=== PATIENT | female | born 1975 | race Caucasian/White ===

== ENCOUNTER 2017-07-30 14:18 | Emergency (ER) | payer OTHER, SELFPAY ==
[2017-07-30] MEDS ORDERED: Ondansetron HCl/PF 4 MG/2 ML Vial ONE (14:43)
[2017-07-30 14:45] LABS: Bilirubin Negative (Negative); Blood, Urine Negative (Negative); Clarity Clear (Clear); Glucose, Urine (Dipstick) Negative (Negative); Leukocyte Negative (Negative); Nitrite Negative (Negative); Protein, Urine (Dipstick) Negative (Neg-Trace); Urobilinogen 0.2 mg/dL (0.2-1.0); pH, Urine 5.5 (5.0-9.0)
[2017-07-30 14:48] LABS: #Basophils 0.1 thou/uL (0.0-0.2); #Eosinphils 0.3 thou/uL (0.0-0.7); #Lymphocytes 2.3 thou/uL (1.20-3.40); #Monocytes 0.5 thou/uL (0.11-0.59); #Neutrophils 3.2 thou/uL (1.40-6.50); %Basophils 1.6 % (0.0-1.0); %Eosinophils 4.1 % (0.0-10.0); %Lymphocytes 36.6 % (21.0-51.0); %Monocytes 7.1 % (0.0-10.0); %Neutrophils 50.6 % (42.0-75.0); Hemoglobin 9.7 g/dL (12.0-16.0); Mean Corpuscular HGB CONC 31.8 g/dL (32.0-36.0); Mean Corpuscular Volume 78.8 fl (81.0-99.0); Mean Platelet Volume 9.7 fL (7.4-10.4); Platelet Count 218 thou/uL (130-400); RBC Distribution Width 14.4 % (11.5-14.5); Red Blood Cell (RBC) Count 3.88 mill/uL (4.20-5.40); Specific Gravity, Urine 1.008 (1.002-1.036); White Blood Cell (WBC) Count 6.3 thou/uL (4.8-10.8)
[2017-07-30] MEDS ORDERED: Morphine 10 MG/ML VIAL ONE (15:00)
[2017-07-30 15:02] LABS: ALT (SGPT) 9 U/L (8-55); AST (SGOT) 14 U/L (5-34); Albumin 4.2 g/dL (3.5-5.0); Alkaline Phosphatase 54 U/L (40-150); Anion Gap 14 mmol/L (10-20); BUN (Urea Nitrogen) Less than 4 mg/dL (7.0-18.7); Bilirubin, Total 0.2 mg/dL (0.2-1.2); Calc. Creatinine Clearance 0 mL/min (70-130); Calcium 8.6 mg/dL (7.8-10.44); Carbon Dioxide 24 mmol/L (22-29); Chloride 101 mmol/L (98-107); Estimated GFR-MDRD Greater than 90; Globulin 2.4 g/dL (2.4-3.5); Glucose 96 mg/dL (70-105); Potassium 3.8 mmol/L (3.5-5.1); Protein, Total 6.6 g/dL (6.0-8.3); Sodium 135 mmol/L (136-145)
[2017-07-30 15:30] LABS: Lipase Less than 4 U/L (8-78)
--- NOTE | 2017-07-30 16:13 | ULT ---
PELVIC ULTRASOUND: 07/30/17 Transabdominal ultrasound of pelvis performed. HISTORY: Pelvic pain. Patient is post hysterectomy and right oophorectomy. Bladder is mildly distended and appears unremarkable. The left ovary appears enlarged and there are p rominent follicular cysts within the left ovary. The larger ones measuring up to 2.0 cm. Left ovary m easurements recorded at 6.3 x 4.0 x 3.0 cm. Color doppler with spectral analysis does demonstrate blood flow to this left ovary. IMPRESSION: Left ovary is enlarged with multiple cysts, the largest measuring up to 2 cm. POS: [facility]
== END 2017-07-30 16:25 | disposition home or self-care (01) ==
LOC: SCSER 14:18
DX: N83.202 Unspecified ovarian cyst, left side (principal); E03.9 Hypothyroidism, unspecified; F17.210 Nicotine dependence, cigarettes, uncomplicated; Z79.899 Other long term (current) drug therapy
CPT/HCPCS: 76856; 80053; 81003; 83690; 85025; 93976; 96374; 96375; 96376; 99406; J2270; J2405

== ENCOUNTER 2017-07-31 17:26 | Emergency (ER) | payer SELFPAY ==
[2017-07-31] MEDS ORDERED: Morphine 10 MG/ML VIAL ONE ×2 (17:44→18:14)
[2017-07-31] MEDS ORDERED: Ondansetron HCl/PF 4 MG/2 ML Vial ONE (17:44)
[2017-07-31 18:14] LABS: ALT (SGPT) 8 U/L (8-55); AST (SGOT) 14 U/L (5-34); Alkaline Phosphatase 56 U/L (40-150); Anion Gap 14 mmol/L (10-20); BUN (Urea Nitrogen) 4 mg/dL (7.0-18.7); Bilirubin, Total 0.2 mg/dL (0.2-1.2); CK (CPK) 96 U/L (29-168); Calc. Creatinine Clearance 0 mL/min (70-130); Calcium 8.5 mg/dL (7.8-10.44); Carbon Dioxide 24 mmol/L (22-29); Chloride 104 mmol/L (98-107); Estimated GFR-MDRD 85; Globulin 2.2 g/dL (2.4-3.5); Glucose 81 mg/dL (70-105); Potassium 4.1 mmol/L (3.5-5.1); Protein, Total 6.2 g/dL (6.0-8.3); Sodium 138 mmol/L (136-145)
[2017-07-31] MEDS ORDERED: Ketorolac Tromethamine 30 MG/ML VIAL ONE (18:14)
[2017-07-31 18:45] LABS: Bilirubin Negative (Negative); Blood, Urine Negative (Negative); Clarity Clear (Clear); Glucose, Urine (Dipstick) Negative (Negative); Leukocyte Negative (Negative); Nitrite Negative (Negative); Protein, Urine (Dipstick) Negative (Neg-Trace); Specific Gravity, Urine 1.015 (1.005-1.030); Urobilinogen 0.2 mg/dL (0.2-1.0)
[2017-07-31] MEDS ORDERED: Fentanyl 100 MCG/2 ML VIAL ONE (19:30)
--- NOTE | 2017-07-31 20:30 | ULT ---
ULTRASOUND PELVIC TRANSVAGINAL WITH DOPPLER 07/31/17 HISTORY: Pain. COMPARISON: Ultrasound yesterday. Patient has history of hysterectomy and right oophorectomy. FINDINGS: Polycystic left ovary is again seen. Adequate vascular flow. Urinary bladder is unremarkable. IMPRESSION: Unchanged exam. 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 POS: [facility]
== END 2017-07-31 20:27 | disposition home or self-care (01) ==
LOC: SCSER 17:26
DX: R10.2 Pelvic and perineal pain (principal); R10.32 Left lower quadrant pain; E03.9 Hypothyroidism, unspecified; F41.9 Anxiety disorder, unspecified; F17.210 Nicotine dependence, cigarettes, uncomplicated; Z79.899 Other long term (current) drug therapy
CPT/HCPCS: 76856; 80053; 81003; 82550; 96374; 96375; 99406; J1885; J2270; J2405; J3010

== ENCOUNTER 2018-05-30 21:07 | Emergency (ER) | payer OTHER, SELFPAY ==
[~2018-05-30 21:07] MED LIST: Iopamidol 370 76% 100 ML VIAL ONE
[2018-05-30] MEDS ORDERED: Ondansetron PF 4 MG/2 ML Vial ONE (21:35)
[2018-05-30] MEDS ORDERED: Morphine 4 MG/ML VIAL ONE ×3 (21:35→23:03)
[2018-05-30 21:40] LABS: #Basophils 0.1 thou/uL (0.0-0.2); #Eosinphils 0.1 thou/uL (0.0-0.7); #Lymphocytes 1.3 thou/uL (1.20-3.40); #Monocytes 0.6 thou/uL (0.11-0.59); #Neutrophils 7.2 thou/uL (1.40-6.50); %Basophils 1.2 % (0.0-1.0); %Eosinophils 1.5 % (0.0-10.0); %Lymphocytes 13.5 % (21.0-51.0); %Monocytes 6.5 % (0.0-10.0); %Neutrophils 77.3 % (42.0-75.0); Hemoglobin 12.2 g/dL (12.0-16.0); Mean Corpuscular HGB CONC 33.2 g/dL (32.0-36.0); Mean Corpuscular Volume 87.5 fL (78.0-98.0); Mean Platelet Volume 6.7 fL (7.4-10.4); Platelet Count 244 thou/uL (130-400); Red Blood Cell (RBC) Count 4.21 mill/uL (4.20-5.40); White Blood Cell (WBC) Count 9.4 thou/uL (4.8-10.8)
[2018-05-30 21:57] LABS: Bilirubin Negative (Negative); Blood, Urine Negative (Negative); Clarity Clear (Clear); Glucose, Urine (Dipstick) Negative (Negative); Leukocyte Negative (Negative); Nitrite Negative (Negative); Protein, Urine (Dipstick) Negative (Neg-Trace); Specific Gravity, Urine 1.026 (1.002-1.036); Urobilinogen 0.2 mg/dL (0.2-1.0); pH, Urine 5.5 (5.0-9.0)
[2018-05-30 22:01] LABS: ALT (SGPT) 10 U/L (8-55); AST (SGOT) 16 U/L (5-34); Albumin 4.2 g/dL (3.5-5.0); Alkaline Phosphatase 62 U/L (40-150); Anion Gap 18 mmol/L (10-20); BUN (Urea Nitrogen) 9 mg/dL (7.0-18.7); Bilirubin, Total 0.2 mg/dL (0.2-1.2); Calc. Creatinine Clearance 0 mL/min (70-130); Calcium 8.7 mg/dL (7.8-10.44); Carbon Dioxide 22 mmol/L (22-29); Chloride 97 mmol/L (98-107); Estimated GFR-MDRD 79; Globulin 2.5 g/dL (2.4-3.5); Glucose 104 mg/dL (70-105); Lipase 8 U/L (8-78); Potassium 4.3 mmol/L (3.5-5.1); Protein, Total 6.7 g/dL (6.0-8.3); Sodium 133 mmol/L (136-145)
--- NOTE | 2018-05-30 22:27 | ULT ---
PELVIC ULTRASOUND: 05/30/18 INDICATION: Left lower quadrant pain. FINDINGS: The uterus and adnexa are not visualized. There is prominent, persistent bowel gas obscuring contents of the pelvis from view. Urinary bladder is mildly distended. IMPRESSION: Nonvisualization of the uterus and adnexa due to persistent prominent bowel content of the pelvis. POS: [facility]
--- NOTE | 2018-05-30 23:01 | CT ---
ABDOMEN AND PELVIC CT NONCONTRAST RENAL CALCULUS PROTOCOL 05/30/18 COMPARISON: 08/16/16 INDICATION: Left lower quadrant pain, new onset. FINDINGS: There is patchy left basilar opacity at the left lower lobe partially visualized. No evidence of urol ithiasis. There is limited evaluation of the solid abdominal organs, bowel, lymph nodes, vasculature on the basis of noncontrast technique. Moderate retained fecal material throughout the colon is prese nt. No free air is visualized. No acute osseous pathology. IMPRESSION: No evidence of urolithiasis or obstructive uropathy. Incidental note of patchy opacity of the left lower lung which may be related to an atypical infectio us/inflammatory process. Correlate clinically. POS: [facility]
[2018-05-30] MEDS ORDERED: Ketorolac Tromethamine 30 MG/ML VIAL ONE (23:03)
--- NOTE | 2018-05-30 23:49 | CT ---
CTA CHEST WITH CONTRAST WITH 3D VOLUME RENDERIN05/30/18 CLINICAL HISTORY: Pain. FINDINGS: No significant filling defect of the pulmonary arteries. Thoracic aorta is nonaneurysmal. There is a reticulonodular region of opacity with interspersed ground glass alveolar opacity throughout the left lower lobe. No effusion or pneumothorax. 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 Correlate clinic ally. IMPRESSION: 1. No evidence of a large, central pulmonary embolus. 2. Left lower lobe pneumonia. Given the multifocal nodularity within the region of opacification , recommend radiographic followup to resolution. POS: [facility]
== END 2018-05-31 00:27 | disposition home or self-care (01) ==
LOC: SCSER 21:07
DX: K59.00 Constipation, unspecified (principal); J18.1 Lobar pneumonia, unspecified organism; E03.9 Hypothyroidism, unspecified; F41.9 Anxiety disorder, unspecified; Z87.891 Personal history of nicotine dependence; Z79.899 Other long term (current) drug therapy
CPT/HCPCS: 71275; 74176; 76856; 80053; 81003; 83690; 85025; 93976; 96361; 96374; 96375; 96376; J1885; J2270; J2405

== ENCOUNTER 2018-06-02 15:31 | Emergency (ER) | payer OTHER ==
[2018-06-02] MEDS ORDERED: Mag-Al Plus 1200 MG/1200 MG/120 MG/30 ML UDCUP ONE ×2 (16:19→16:20)
[2018-06-02] MEDS ORDERED: Lidocaine Viscous Sol 2% 15 ml UD Cup ONE (16:19)
[2018-06-02] MEDS ORDERED: Ketorolac Tromethamine 30 MG/ML VIAL ONE (16:19)
[2018-06-02] MEDS ORDERED: Dicyclomine 20 MG TAB ONE (16:19)
[2018-06-02] MEDS ORDERED: Ondansetron PF 4 MG/2 ML Vial ONE (16:19)
[2018-06-02 16:23] LABS: Bilirubin Negative (Negative); Blood, Urine Negative (Negative); Clarity Clear (Clear); Glucose, Urine (Dipstick) Negative (Negative); Leukocyte Negative (Negative); Nitrite Negative (Negative); Protein, Urine (Dipstick) Negative (Neg-Trace); Specific Gravity, Urine 1.015 (1.005-1.030); Urobilinogen 0.2 mg/dL (0.2-1.0); pH, Urine 7.5 (5.0-9.0)
[2018-06-02 17:03] LABS: #Basophils 0.1 thou/uL (0.0-0.2); #Eosinphils 0.2 thou/uL (0.0-0.7); #Lymphocytes 1.6 thou/uL (1.20-3.40); #Monocytes 0.5 thou/uL (0.11-0.59); #Neutrophils 4.9 thou/uL (1.40-6.50); %Basophils 0.9 % (0.0-1.0); %Eosinophils 2.7 % (0.0-10.0); %Lymphocytes 21.3 % (21.0-51.0); %Monocytes 6.8 % (0.0-10.0); %Neutrophils 68.3 % (42.0-75.0); Hemoglobin 11.7 g/dL (12.0-16.0); Mean Corpuscular HGB CONC 32.8 g/dL (32.0-36.0); Mean Corpuscular Hemoglobin 28.4 pg (27.0-31.0); Mean Corpuscular Volume 86.5 fL (78.0-98.0); Mean Platelet Volume 6.9 fL (7.4-10.4); Platelet Count 267 thou/uL (130-400); RBC Distribution Width 11.6 % (11.5-14.5); Red Blood Cell (RBC) Count 4.12 mill/uL (4.20-5.40); White Blood Cell (WBC) Count 7.2 thou/uL (4.8-10.8)
[2018-06-02 17:18] LABS: ALT (SGPT) 7 U/L (8-55); AST (SGOT) 13 U/L (5-34); Albumin 4.1 g/dL (3.5-5.0); Alkaline Phosphatase 73 U/L (40-150); Anion Gap 15 mmol/L (10-20); BUN (Urea Nitrogen) 6 mg/dL (7.0-18.7); Bilirubin, Total 0.3 mg/dL (0.2-1.2); Calc. Creatinine Clearance 0 mL/min (70-130); Calcium 8.9 mg/dL (7.8-10.44); Carbon Dioxide 27 mmol/L (22-29); Chloride 99 mmol/L (98-107); Estimated GFR-MDRD 82; Globulin 2.8 g/dL (2.4-3.5); Glucose 85 mg/dL (70-105); Lipase 5 U/L (8-78); Potassium 4.2 mmol/L (3.5-5.1); Protein, Total 6.9 g/dL (6.0-8.3); Sodium 137 mmol/L (136-145)
[2018-06-02] MEDS ORDERED: Haloperidol Lactate 5 MG/ML VIAL ONE (17:34)
--- NOTE | 2018-06-02 19:02 | CT ---
CT ABDOMEN AND PELVIS WITH IV CONTRAST: 06/02/18 HISTORY: Left lower quadrant abdominal pain. History of prior right oophorectomy. COMPARISON: 08/16/16 FINDINGS: There is partial visualization of bilateral breast implants. The lung bases are clear. The liver, spleen, pancreas, bilateral adrenal glands, kidneys, abdominal aorta, and urinary bladder demonstrate a normal CT appearance. The uterus appears small in size. There is a left adnexal cystic and solid mass-like structure probably related to patient's left ovary with possible ovarian cyst. Ho wever, this is larger in size when compared to study in 2017. This left adnexal structure measures 5. 4 cm x 4.6 cm x 3.6 cm. There is mild inflammatory stranding seen just anterior and inferior to this region with questionable tiny amount of fluid posterior to this presumed enlarged left ovary. Ovarian torsion cannot be entirely excluded based on this examination. There is a lack of intra-abdominal fa t in this region limiting evaluation, but no colonic wall thickening is present. there is no fluid co llection seen to suggest an abscess. The appendix is not visualized. No other interval change. IMPRESSION: 1. Enlarged left adnexal mass-like structure which may represent enlargement of the patient's le ft ovary with associated follicles or cysts. However, there is adjacent minimal inflammatory changes. Ovarian torsion cannot be excluded based on this examination. Further evaluation with pelvic ultraso und is suggested. 2. Fluid filled loops of bowel which is nonspecific. No dilated loops o small bowel are present. 3. Above findings discussed with Dr. Gillis in the Emergency Department on 06/02/18 at 1706 hour s. POS: [facility]
--- NOTE | 2018-06-02 20:05 | ULT ---
TRANSABDOMINAL PELVIC ULTRASOUND: 06/02/18 PROVIDED CLINICAL HISTORY: Abnormal CT appearance of left ovary. FINDINGS: The uterus and right ovary are not visualized compatible with the provided clinical history of prior hysterectomy and right oophorectomy. The left ovary measures approximately 4.3 x 3.8 x 2. 8 cm and de monstrates an unremarkable sonographic appearance. Color doppler and spectral analysis of the left ov [place] waveform demonstrates normal flow. There is no significant free pelvic fluid evident. IMPRESSION: No evidence for ovarian torsion. POS: [facility]
== END 2018-06-02 18:45 | disposition home or self-care (01) ==
LOC: SCSER 15:31
DX: R10.12 Left upper quadrant pain (principal); E03.9 Hypothyroidism, unspecified; F41.9 Anxiety disorder, unspecified; Z87.891 Personal history of nicotine dependence; Z79.899 Other long term (current) drug therapy
CPT/HCPCS: 74177; 76856; 80053; 81003; 83690; 85025; 93976; 96372; 96374; 96375; J1630; J1885; J2405